=== PATIENT | male | born 1980 | race Caucasian/White ===

== ENCOUNTER 2022-03-01 21:18 | Emergency (ER) | payer OTHER, SELFPAY ==
[2022-03-01 21:32] VITALS: BP 129/81; PULSE 84; RESP 20; TEMP 36.1; O2SAT 98; BMI 38.0
--- NOTE | 2022-03-01 22:15 | ED_ITS ---
HPI - General Adult General Chief complaint: Animal Bite Stated complaint: Dog bite Source: patient Mode of arrival: ambulatory Limitations: no limitations History of Present Illness HPI narrative: 41-year-old male presents to ED for dog bite to the right hand. Dog bite occurred today at his friend's house. Patient states trying to take toy from his friend's dog month and the dog bit him. Patient states his friend's dog up-to-date with rabies. Patient up-to-date with Tdap. Patient has 2 abrasions and 1 small puncture wound. Patient has complete range of motion of right hand. Related Data Previous Rx's Medication Instructions Recorded amoxicillin 875 mg-potassium 1 tab PO Q12H 10 Days #19 tab 03/01/22 clavulanate 125 mg tablet naproxen 500 mg tablet 500 mg PO BID PRN 10 Days #20 tab 03/01/22 Allergies Allergy/AdvReac Type Severity Reaction Status Date / Time No Known Allergies Allergy Verified 03/01/22 21:34 [No Known Allergies*] Review of Systems Review of Systems: Dog bite of right hand Yes all other systems are reviewed and are negative [facility] Past Medical History Medical History (Updated 03/01/22 @ 22:22 by JAMES Combs) Diabetes Social History Social History Advance Directives: No Advance Directives Information Provided: No Physical Exam ED Vital Signs: Vital Signs - 24 hr 03/01/22 21:32 Temperature 97 F Pulse Rate 84 Respiratory Rate 20 Blood Pressure 129/81 Pulse Oximetry 98 BMI result Body Mass Index 38.0 Const General: cooperative, healthy appearing, comfortable, no acute distress, well developed, alert, awake and Physically active Orientation/consciousness: patient oriented x3 HENMT Head: Yes normal to inspection, Yes No palpable skull fracture present, Yes normocephalic, Yes atraumatic and No abrasion Eyes General: appearance normal, both eyes and all related structures Neck Neck: Yes normal visual inspection, Yes full ROM, Yes no lymphadenopathy, Yes no meningeal signs, Yes trachea midline, Yes supple, No anterior neck swelling and No tender Chest Chest palpation & inspection: normal inspection of the chest and normal palpation of entire chest wall Resp Effort & Inspection: normal respiratory effort and able to speak in complete sentences Auscultation: clear to auscultation bilaterally Cardio Jugular venous distension: no JVD Heart sounds: S1 normal heart sound present and S2 normal heart sound present GI Inspection: Yes normal to inspection and No abdominal wall ecchymosis Palpation (GI): Soft to palpation, not firm, nontender, no guarding and not rigid General: No CVA tenderness and Yes no CVA tenderness Back/Spine/Pelvis Back: no CVA tenderness, No CVA tenderness and No back tenderness Skin Trauma: abrasion and puncture Neuro General: patient oriented x3, gait normal, tone normal, moves all extremities and no meningeal signs Cranial nerves: Yes CN's II-XII intact bilaterally Extrem General: Yes normal to inspection and Yes full ROM Hand/finger images: 1. Positive for abrasions. Negative for active bleeding 2. Positive for abrasions. Negative for active bleeding 3. Very small puncture wound. Negative for any tendon exposure. Patient has complete range of motion of all fingers. Capillary refills intact. Able to flex and extend wrist. Negative for signs of tendon/nerve injury. Motor/neuro/vascular exam intact. Psych Appearance: grossly normal, well kempt and not disheveled Course Course Course Narrative: Patient states dog up-to-date with rabies and patient up-to-date with tetanus. Wound clean. Reevaluation(s) Reevaluation #1: Patient given 1st dose of antibiotic in the ED. patient wound was wrapped. Patient discharged with antibiotic Time: 22:22 Medical Decision Making [facility] Narrative Medical decision making narrative: Dog bite Discharge Plan Discharge Clinical Impression: Dog bite Patient Disposition: Home, Self-Care Instructions: Animal Bite (ED) Additional Instructions: You will be discharged with antibiotics. Return to the ED for any swelling, redness, pus discharge, inability to move extremity, red streaks, bluish black discoloration, fever, chills, or any other concerning symptoms. Please follow- up primary care provider Prescriptions: New naproxen 500 mg tablet 500 mg PO BID PRN (Reason: pain) 10 Days Qty: 20 0RF amoxicillin-pot clavulanate 875-125 mg tablet 1 tab PO Q12H 10 Days Qty: 19 0RF Rx Instructions: Patient received 1st dose of Augmentin in the ER. Stand Alone Forms: Work/School Release Interventions: ED Discharge Assessment Last Done: 03/01/22 22:40 Discharge Date/Time: 03/01/22 22:41 Print Language: Sami
[2022-03-01] MEDS: Amoxicillin/Potassium Clav 875 MG TABLET PO (22:29)
== END 2022-03-01 22:41 | disposition home or self-care (01) ==
PROVIDERS: Emergency Provider Internal Medicine; PCP Internal Medicine
DX: S60.571A Other superficial bite of hand of right hand, initial encounter (principal); S60.511A Abrasion of right hand, initial encounter; W54.0XXA Bitten by dog, initial encounter; Y93.9 Activity, unspecified; Y92.9 Unspecified place or not applicable; Y99.9 Unspecified external cause status
CPT/HCPCS: 99283